=== PATIENT | male | born 1995 | race African-American/Black ===

== ENCOUNTER 2017-08-17 23:08 | Emergency (ER) | payer OTHER ==
[~2017-08-17] VITALS: Ht 170.2 cm; Wt 67.2 kg
[2017-08-18] MEDS ORDERED: MOTRIN800 MG PO (00:04)
[2017-08-18 00:27] VITALS: BP 139/87
== END 2017-08-18 00:28 | disposition home or self-care (01) ==
LOC: EME 23:08
PROC: 2W3GX1Z Immobilization of Right Thumb using Splint (ICD-10-PCS; principal; 2017-08-18)
DX: S62.501A Fracture of unspecified phalanx of right thumb, initial encounter for closed fracture (principal); S63.91XA Sprain of unspecified part of right wrist and hand, initial encounter; W21.02XA Struck by soccer ball, initial encounter
CPT/HCPCS: 73140; 99281; 99284